=== PATIENT | male | born 1985 | race Caucasian/White ===

== ENCOUNTER 2019-11-18 10:21 | Emergency (ER) | payer OTHER, BC ==
[2019-11-18] MEDS ORDERED: Diphtheria,Pertussis(Acell),Tetanus Vaccine 0.5 ML SDV IM ONE (10:58)
[2019-11-18] MEDS ORDERED: Ketorolac 30 MG/ML SDV IM ONE (11:19)
--- NOTE | 2019-11-18 11:20 | CR ---
EXAMINATION: Fingers Fifth Digit Rt F9 SEX: Male AGE: 34 years CLINICAL HISTORY: 34-year-old male crushing injury right small (fifth) finger. Interpretation: Mild soft tissue swelling (STS). No sign of underlying fracture or dislocation small (fifth) or adjacent ring fingers, right hand. No foreign bodies. CONCLUSION: Negative exam.
[2019-11-18] MEDS ORDERED: Bacitracin Oint 1 GM U/D Packet TOP ONE (11:29)
--- NOTE | 2019-11-18 11:35 | EDM.PDOC ---
ED HPI GENERAL MEDICAL PROBLEM - General Chief Complaint: Laceration Stated Complaint: CUT RT HAND AT WORK Time Seen by Provider: 11/18/19 11:15 Source of Information: Reports: Patient, RN History Limitations: Reports: No Limitations - History of Present Illness INITIAL COMMENTS - FREE TEXT/NARRATIVE: 34 year old male who presents to the ER with complaints of a crush injury/ laceration on his right pinky finger about 20 minutes ago. Patient reports he was throwing bags of beans in the conveyor when his right pinky got caught in it. He states he pulled out his finger immediately but pain was instant. pain was 9/10 but down to 4/10 at the of this interview. He reports lost of sensation in his right pinky at the time of the incident but reports sensation is back to baseline. Bleeding controlled. Last tetanus vaccination unknown. Right Finger-Little Pain Score (Numeric/FACES): 7 - Related Data Allergies Allergy/AdvReac Type Severity Reaction Status Date / Time No Known Allergies Allergy Verified 11/18/19 10:34 Home Meds: Home Meds Omeprazole Magnesium [Prilosec Otc] 20 mg PO DAILY 11/18/19 [History] Past Medical History HEENT History: Reports: None Cardiovascular History: Reports: None Respiratory History: Reports: None Gastrointestinal History: Reports: GERD Genitourinary History: Reports: None Musculoskeletal History: Reports: Other (See Below) Neurological History: Reports: None Psychiatric History: Reports: None Endocrine/Metabolic History: Reports: None Hematologic History: Reports: None Immunologic History: Reports: None Oncologic (Cancer) History: Reports: None Dermatologic History: Reports: None - Infectious Disease History Infectious Disease History: Reports: Chicken Pox - Past Surgical History Head Surgeries/Procedures: Reports: None HEENT Surgical History: Reports: None Cardiovascular Surgical History: Reports: None Respiratory Surgical History: Reports: None GI Surgical History: Reports: None Male Surgical History: Reports: None Musculoskeletal Surgical History: Reports: Other (See Below) Other Musculoskeletal Surgeries/Procedures:: Left ACL Social & Family History - Family History Family Medical History: Noncontributory - Tobacco Use Smoking Status *Q: Never Smoker - Caffeine Use Caffeine Use: Reports: Coffee, Soda, Tea - Recreational Drug Use Recreational Drug Use: No ED ROS GENERAL - Review of Systems Review Of Systems: See Below Constitutional: Reports: No Symptoms Musculoskeletal: Reports: Hand Pain Psychiatric: Reports: No Symptoms Hematologic/Lymphatic: Reports: No Symptoms Immunologic: Reports: No Symptoms ED EXAM, SKIN/RASH Exam: See Below Exam Limited By: No Limitations General Appearance: Alert, Mild Distress Peripheral Pulses: 3+: Radial (R) Extremities: Normal Inspection, Normal Range of Motion, Normal Capillary Refill , Other (Good range of motion of right little finger, small open wound noted on the medial metacarpal.) Neurological: Alert, Oriented, No Motor/Sensory Deficits Psychiatric: Normal Affect, Normal Mood Skin: Warm Lymphatic: No Adenopathy ED SKIN PROCEDURES - Laceration/Wound Repair Right Digit - 5th (Baby) Appearance: Clean Distal NVT: Neuro & Vascular Intact, No Tendon Injury Skin Prep: Saline Exploration/Debridement/Repair: Wound Explored Tetanus Status Addressed: Yes Complications: No - Additional/Other Procedure(s) Other (Free Text) Procedure(s): wound cleansed with normal saline. Bacitracin applied. Patient tolerated the procedure well. Course - Vital Signs Last Recorded V/S: Last Vital Signs Temp 97.7 F 11/18/19 10:28 Pulse 90 11/18/19 10:28 Resp 16 11/18/19 10:28 BP 156/81 H 11/18/19 10:28 Pulse Ox 99 11/18/19 10:28 - Orders/Labs/Meds Orders: Active Orders 24 hr Category Date Time Status Vaccines to be Administered [RC] PER UNIT ROUTINE Care 11/18/19 10:58 Active Bacitracin [Bacitracin Oint 1 GM] Med 11/18/19 11:29 Once 1 dose TOP ONETIME ONE Medication Orders Bacitracin (Bacitracin Oint 1 Gm) 1 dose TOP ONETIME ONE Stop: 11/18/19 11:30 Meds: Medications Generic Name Dose Route Start Last Admin Trade Name Freq PRN Reason Stop Dose Admin Bacitracin 1 dose 11/18/19 11:29 Bacitracin Oint 1 Gm TOP 11/18/19 11:30 ONETIME ONE Discontinued Medications Generic Name Dose Route Start Last Admin Trade Name Freq PRN Reason Stop Dose Admin Diphtheria/Tetanus/Acell Pertussis 0.5 ml 11/18/19 10:58 11/18/19 11:05 Adacel IM 11/18/19 10:59 0.5 ml .ONCE ONE Administration Ketorolac Tromethamine 30 mg 11/18/19 11:19 Toradol IM 11/18/19 11:20 ONETIME ONE Departure - Departure Time of Disposition: 11:30 Disposition: Home, Self-Care 01 Condition: Fair Clinical Impression: Laceration, Crush injury - Discharge Information Instructions: Crush Injury of the Hand, [id number], Laceration Care, Adult, [id number] Additional Instructions: Encouraged to keep wound clean and dry. Apply ice every 15 minutes/one hour. RTC if pain worsens. Follow up with PCP in the clinic in two days. Sepsis Event Note - Evaluation Sepsis Screening Result: No Definite Risk - Focused Exam Vital Signs: Vital Signs Temp Pulse Resp BP Pulse Ox 11/18/19 10:28 97.7 F 90 16 156/81 H 99 Date Exam was Performed: 11/18/19 Time Exam was Performed: 11:30 - My Orders Last 24 Hours: My Active Orders 11/18/19 10:58 Vaccines to be Administered [RC] PER UNIT ROUTINE 11/18/19 11:29 Bacitracin [Bacitracin Oint 1 GM] 1 dose TOP ONETIME ONE - Assessment/Plan Last 24 Hours: My Active Orders 11/18/19 10:58 Vaccines to be Administered [RC] PER UNIT ROUTINE 11/18/19 11:29 Bacitracin [Bacitracin Oint 1 GM] 1 dose TOP ONETIME ONE
== END 2019-11-18 11:40 | disposition home or self-care (01) ==
LOC: DL.ED 10:21
DX: S67.196A Crushing injury of right little finger, initial encounter (principal); S61.216A Laceration without foreign body of right little finger without damage to nail, initial encounter; K21.9 Gastro-esophageal reflux disease without esophagitis; Z79.899 Other long term (current) drug therapy; Z23 Encounter for immunization; W23.0XXA Caught, crushed, jammed, or pinched between moving objects, initial encounter; Y93.89 Activity, other specified; Y99.0 Civilian activity done for income or pay
CPT/HCPCS: 73140-F9; 90471; 90715; 99283-25